=== PATIENT | male | born 1970 | race Caucasian/White ===

== ENCOUNTER 2018-04-05 06:38 | Emergency (ER) | payer OTHER ==
[2018-04-05 07:16] LABS: #Lymphocytes 0.7 thou/uL (1.20-3.40); #Monocytes 0.5 thou/uL (0.11-0.59); #Neutrophils 3.4 thou/uL (1.40-6.50); %Basophils 0.6 % (0.0-1.0); %Eosinophils 0.4 % (0.0-10.0); %Lymphocytes 15.3 % (21.0-51.0); %Monocytes 9.7 % (0.0-10.0); Hemoglobin 16.5 g/dL (14.0-18.0); Mean Corpuscular HGB CONC 35.7 g/dL (32.0-36.0); Mean Corpuscular Hemoglobin 31.2 pg (27.0-31.0); Mean Corpuscular Volume 87.3 fL (78.0-98.0); Mean Platelet Volume 7.5 fL (7.4-10.4); Platelet Count 156 thou/uL (130-400); RBC Distribution Width 11.2 % (11.5-14.5); White Blood Cell (WBC) Count 4.6 thou/uL (4.8-10.8)
[2018-04-05] MEDS ORDERED: Mag-Al 1200 mg/1200 mg/30 ML UDCUP ONE (07:21)
[2018-04-05] MEDS ORDERED: Lidocaine Viscous Sol 2% 15 ml UD Cup ONE (07:21)
[2018-04-05 07:33] LABS: Albumin 4.4 g/dL (3.5-5.0); Calcium 9.5 mg/dL (7.8-10.44); Chloride 105 mmol/L (98-107); Globulin 3.2 g/dL (2.4-3.5); Glucose 118 mg/dL (70-105); Potassium 3.5 mmol/L (3.5-5.1); Protein, Total 7.6 g/dL (6.0-8.3); Sodium 135 mmol/L (136-145)
[2018-04-05 07:34] LABS: Anion Gap 12 mmol/L (10-20); Bilirubin, Total 1.2 mg/dL (0.2-1.2); Carbon Dioxide 22 mmol/L (22-29)
[2018-04-05 07:35] LABS: Alkaline Phosphatase 66 U/L (40-150)
[2018-04-05 07:36] LABS: BUN (Urea Nitrogen) 14 mg/dL (8.9-20.6); Calc. Creatinine Clearance 0 mL/min (70-130); Estimated GFR-MDRD 69
[2018-04-05 07:37] LABS: AST (SGOT) 38 U/L (5-34)
[2018-04-05 07:38] LABS: ALT (SGPT) 30 U/L (8-55); CK (CPK) 1447 U/L (30-200)
[2018-04-05 07:41] LABS: CKMB 0.8 ng/mL (0-6.6); Troponin I Less than 0.010 ng/mL (< 0.028)
[2018-04-05 07:44] LABS: Lipase 12 U/L (8-78)
[2018-04-05] MEDS ORDERED: Famotidine/PF 20 mg/2ml Vial ONE (08:13)
[2018-04-05 08:40] LABS: Bilirubin Small (Negative); Blood, Urine Negative (Negative); Clarity CLEAR (Clear); Glucose, Urine (Dipstick) Negative (Negative); Leukocyte Negative (Negative); Nitrite Negative (Negative); Protein, Urine (Dipstick) Trace mg/dL (Neg-Trace); Specific Gravity, Urine 1.031 (1.002-1.036); pH, Urine 5.5 (5.0-9.0)
--- NOTE | 2018-04-05 08:43 | RAD ---
PA AND LATERAL OF THE CHEST: INDICATION: Chest pain that started 1 hour prior to arrival with shortness of breath. COMPARISON: None. FINDINGS: The lungs are clear. The cardiomediastinal silhouette is normal. No pleural effusion or pneumothora x is evident. No acute osseous abnormality is evident. IMPRESSION: No acute cardiopulmonary abnormality. Findings called to Dr. Catalan at 7:45 a.m. on 04/05/18. CODE CR POS: ELEAZAR
[2018-04-05 10:53] LABS: Troponin I Less than 0.010 ng/mL (< 0.028)
== END 2018-04-05 12:07 | disposition home or self-care (01) ==
LOC: ERS 06:38
DX: R07.89 Other chest pain (principal); M62.82 Rhabdomyolysis
CPT/HCPCS: 36415; 71046; 80053; 81003; 82550; 82553; 83690; 84484; 85025; 93005; 96361; 96374; S0028